=== PATIENT | female | born 1935 | race Caucasian/White ===

== ENCOUNTER 2018-09-06 19:12 | Observation (INO) | payer MEDICARE, BC ==
[~2018-09-06] VITALS: Ht 167.6 cm; Wt 72.8 kg
[~2018-09-06 19:12] MED LIST: ALAVERT10 M1 PO; ASPIRIN EC325 MG PO; CALCIUM + VITA1 EACH PO; DICLOFENAC SOD100 MG PO; DICLOFENAC SODI75 MG PO; FERROUS SULFAT325 MG PO; FLUTICASONE PRO16 GM NAS; HYDROCODON-ACE1 EA10 PO; HYDROXYZINE HCL25 MG PO; LOSARTAN POTAS100 MG PO; MULTI VITAMIN1 EACH PO; NORCO 5-325 TA1 EACH PO; OMEPRAZOLE40 MG PO; PROVENTIL HFA6.7 GM INH; SIMVASTATIN40 MG PO; VITAMIN C500 M1 PO; VITAMIN E400 UNI5 PO; ZOFRAN ODT4 MG SL
[2018-09-06] MEDS ORDERED: NORCO 5-325 TA1 EACH PO (19:35)
[2018-09-06] MEDS ORDERED: NORTRIPTYLINE H10 MG PO (19:36)
[2018-09-06] MEDS ORDERED: LOSARTAN-HCTZ1 EAC2 PO (19:36)
[2018-09-06] MEDS ORDERED: OMEPRAZOLE20 MG PO (19:37)
[2018-09-06] MEDS ORDERED: LASIX20 MG PO (19:38)
--- NOTE | 2018-09-06 22:31 | NUR ---
VITALS DONE AND CHARTED. WEIGHT DONE WELL. FRESH ICE WATER GIVEN. BEDSIDE TABLE AND CALL LIGHT IN REACH.
--- NOTE | 2018-09-06 23:20 | NUR ---
PT ADMITTED TO ROOM 111 FROM ED. PT ALERT AND ORIENTED TO SELF, PLACE AND MONTH/DATE. LIVES AT HOME. SLOW RESPONSE TO QUESTIONS BUT ANSWERS APPROPRIATELY. [place], HEARING AIDS AT BEDSIDE, FRIEND FROM HOME WILL BRING INVENTORY MANAGEMENT SPECIALIST IN AM. NO C/O CP OR SOB, HELPTS WITH TURNING AND HELPED WITH TRANSFERRING FROM GOURNEY TO BED. TOLERATING FLUIDS WELL. BED ALARM ON. INSTRUCTED ON HOSP ROUTINE AND HIGH FALL PRECAUTIONS, STATED UNDERSTANDING. NO C/O PAIN OR REQUESTS AT THIS TIME
--- NOTE | 2018-09-07 02:30 | NUR ---
ASSISTED PT TO THE BEDSIDE COMMODE 1PA PIVOT. SHE IS BACK IN BED WITH ALARM ON. SHE DENIES FURTHER NEEDS CALL LIGHT IS WITHIN REACH.
--- NOTE | 2018-09-07 04:01 | NUR ---
RESTING, NO RESP DISTRESS, BED ALARM ON.
--- NOTE | 2018-09-07 04:53 | NUR ---
PT ALERT TO A&OX3, SLOW RESPONSE WHEN ANSWERING QUESTIONS, ANSWERS APPROPRIATELY. USING CALL LIGHT APPROPRIATELY, IVF INFUSING W/O PROBLEMS. UP TO BSCX1, VOIDED, BACK TO BED, REQUIRED 2PERSON ASSIST TURN AND PIVOT WHEN UP TO BRP, WEAK AND UNSTEADY GAIT PRESENT. SLIHGT DROOP OF MOUTH PRESENT. NO C/O PAIN, TUNRS SELF IN BED, BED ALARM ON FOR FALL PRECAUTIONS. FOLLOWS INSTRUCTIONS WELL. IN BED, ON ROOM AIR
--- NOTE | 2018-09-07 05:39 | NUR ---
AWAKE, NO C/O PAIN, TURNS SELF IN BED, BED ALARM ON, FALL SAFETY MEASURES IN PLACE. ALERT AND ORIENTED, FOLLOWS INSTRUCTIONS WELL, SLOW BUT APPROPRIATE RESPONSE. COOP WITH LAB DRAWS. NO C/O LIGHTHEADNESS AT THIS TIME.
--- NOTE | 2018-09-07 06:04 | NUR ---
ASSISTED PT TO PIVOT TO BSC WITH FWW. SHE IS BACK IN BED AND DENIES NEEDS AT THIS TIME. CALL LIGHT IS WITHIN REACH.
--- NOTE | 2018-09-07 07:47 | NUR ---
GOT PATIENT A WARM BLANKET AND A CUP OF COFFEE. PATIENT SITTING UP ON EDGE OF BED EATING HER BREAKFAST.
--- NOTE | 2018-09-07 08:00 | NUR ---
RECEIVED REPORT AT 0700, FOUND PT IN BED JUST WAKING UP. PT WAS AAO X4 AND HAD NO NEEDS OR CONCERNS AT THAT TIME.
--- NOTE | 2018-09-07 09:29 | NUR ---
SPOKE WITH PATIENT IN ROOM. PATIENT ORIENTED. STATES SHE IS A LITTLE "LIGHTHEADED" WHEN SHE FIRST SAT UP. PATIENT GETTING READY TO WORK WITH PHYSICAL THERAPY. PATIENT STATES SHE LIVES ALONE, IN A HOUSE WITH HER SMALL DOG. HAS A GOOD NEIGHBOR, ANIYA, WHO HELPS HER SOMETIMES. PATIENT STILL DRIVES. PATIENT DOES OWN SHOPPING, OWN MEDICATIONS. SHE STATES SHE HAS A PILL BOX AND SHE FILLS IT HERSELF. SHE STATES SHE HAD A LITTLE DIARRHEA YESTERDAY AND SHE THINKS SHE WAS DEHYDRATED. WE DISCUSSED IMPORTANCE OF FLUIDS, ESPECIALLY WHEN LOOSING FLUIDS THROUGH DIARRHEA. PATIENT AGREES TO VISIT FROM CHW NEXT WEEK TO HELP HER WITH RESOURCES. PATIENT VERY PLEASANT. OBVIOUSLY HAS SOME HEARING LOSS. STATES SHE HAS A WALKER AND CANE AT HOME TO USE. WANTS TO RETURN HOME. IS OK WITH US TALKING WITH HER FAMILY OR HER NEIGHBOR ANIYA.
--- NOTE | 2018-09-07 09:59 | NUR ---
SPOKE WITH NEIGHBOR/FRIEND ANIYA SHEA [phone] WHO IS HERE. SHE HAS BROUGHT PATIENTS MEDICATIONS IN AND IS GOING OVER THEM WITH PHARMACY. SHE STATES PATIENTS NEPHEW IS QUINTIN [employer] [phone] AND HE IS POA. SHE STATES SHE HAS A GRANDSON HERE AND ANOTHER NEPHEW, BUT THEY DON'T VISIT HER OFTEN. SHE STATES SHE ASKED PATIENT IF SHE COULD HELP HER WITH HER MEDICATIONS FROM NOW ON, AND PATIENT IS AGREEABLE. SHE WILL TAKE OVER DOING PILL BOXES AND MAKING SURE SHE IS TAKING THEM. WE DISCUSSED PATIENT WILL NEED TO FOLLOW UP AGAIN SOON WITH HER PCP DR FLYNN AFTER THIS EPISODE. SHE STATES UNDERSTANDING. CHW CONTACT INFORMATION GIVEN TO ANIYA, SHE WILL ALSO CALL MINDI BARNEYW AND BE THERE WHEN SHE COMES TO THE HOME. NO FURTHER QUESTIONS AT THIS TIME. PATIENT WILL RETURN HOME WITH HELP OF NEIGHBOR ANIYA.
--- NOTE | 2018-09-07 10:00 | NUR ---
ALL LOBES CLEAR, PT IS AAO X4, OVERALL STRENGTH BEFORE PHYSICAL THERAPY WAS +4. SHE DID VERY WELL WITH THERAPY. V/S ARE WDL OVERALL. VERT SLIGHT HEART MURMURE NOTED. NO EDEMA NOTED PT DENIES PAIN AND DIZZINESS. NO NEW CONCERNS NOTED SO FAR.
[2018-09-07] MEDS ORDERED: STOOL SOFTENER100 MG PO (10:15)
--- NOTE | 2018-09-07 10:19 | NUR ---
MED REC COMPLETE WITH NEIGHBOR ANIYA AND MEDICATION BOTTLES.
--- NOTE | 2018-09-07 10:26 | NUR ---
CHANGED BED LINENS. PATIENT IS SITTING UP IN CHAIR.
--- NOTE | 2018-09-07 11:32 | EKG ---
[facility] [address] [facility] [place], [place] [address] Signed Normal sinus rhythm Normal ECG No previous ECGs available Confirmed by HO HUDSON DO ([id number]) on 09/07/2018 11:31:58 AM Electronically Signed By: HO HUDSON DO 09/07/18 1132 PATIENT NAME: DHIRAJ MORROW Electrocardiogram DATE OF : 33 PHYSICIAN: HO HUDSON DO REPORT #: [id number] REPORT IS CONFIDENTIAL AND NOT TO BE RELEASED WITHOUT AUTHORIZATION
--- NOTE | 2018-09-10 15:49 | NUR ---
FAXED CLINICALS AND ORDER FOR OUTPATIENT PHYSICAL THERAPY TO [facility]. FAX CONFIRMATION RECEIVED. CALLED AND SPOKE WITH CHW WHO IS SCHEDULED TO SEE PATIENT ON MONDAY AT HOME. SPOKE WITH PATIENTS FRIEND AND NEIGHBOR WHO IS AT THE HOME WITH PATIENT NOW. SHE STATES PATIENT IS FEELING SLOW, BUT BETTER. SHE STATES SHE IS DOING PATIENTS MEDICATIONS. SHE STATES HER NEWPHEW WHO IS POA (QUINTIN) IS COMING MONDAY AND THEY WILL BOTH ACCOMPANY PATIENT TO DR FLYNN APPOINTMENT Monday AND MEET WITH TED OBREGON ON MONDAY AFTERNOON. DISCUSSED THAT OUTPATIENT THERAPY ORDER WAS SENT AND THEY SHOULD BE HEARING FROM THE CLINIC. SHE STATES UNDERSTANDING. SHE STATES PATIENT IS DOING WELL GETTING AROUND THE APARTMENT, THEY HAVE NOT GONE OUT. SHE DENIES ANY CONCERNS AT THIS TIME. SHE HAS OUR CASE MANAGEMENT NUMBER TO CALL IF SHE HAS QUESTIONS.
== END 2018-09-07 10:50 | disposition home or self-care (01) ==
LOC: ED 19:12 → MS 19:13
PROVIDERS: ADMIT Student in an Organized Health Care Education/Training Program
DX: G92 Toxic encephalopathy (principal); N17.9 Acute kidney failure, unspecified; G47.00 Insomnia, unspecified; H91.90 Unspecified hearing loss, unspecified ear; M19.90 Unspecified osteoarthritis, unspecified site; I10 Essential (primary) hypertension; E78.5 Hyperlipidemia, unspecified; J30.2 Other seasonal allergic rhinitis; G89.29 Other chronic pain; Z79.891 Long term (current) use of opiate analgesic; Z79.51 Long term (current) use of inhaled steroids; Z79.899 Other long term (current) drug therapy; Z88.0 Allergy status to penicillin; Z88.2 Allergy status to sulfonamides; Z88.8 Allergy status to other drugs, medicaments and biological substances
CPT/HCPCS: 36415; 51701; 70450; 71045; 80048; 80053; 81001; 83735; 84484; 85025; 93005; 93010; 96361; 96374; 97162; 99285-25; G0378; J2310; J7030; J7120

== ENCOUNTER 2022-12-18 17:13 | Emergency (ER) | payer MEDICARE, BC ==
[~2022-12-18] VITALS: Ht 167.6 cm; Wt 81.7 kg
[~2022-12-18 17:13] MED LIST changes: +LASIX20 MG PO; +LEVOFLOXACIN500 MG PO; +LOSARTAN-HCTZ1 EAC2 PO; +NORTRIPTYLINE H10 MG PO; +OMEPRAZOLE20 MG PO; +PLAVIX75 MG PO; +STOOL SOFTENER100 MG PO
[2022-12-18 18:21] VITALS: BP 150/105
== END 2022-12-18 18:21 | disposition home or self-care (01) ==
LOC: ED 17:13
DX: F10.129 Alcohol abuse with intoxication, unspecified (principal); I10 Essential (primary) hypertension; E78.5 Hyperlipidemia, unspecified; Z88.0 Allergy status to penicillin; Z88.2 Allergy status to sulfonamides; Z88.8 Allergy status to other drugs, medicaments and biological substances; Z79.899 Other long term (current) drug therapy
CPT/HCPCS: 36415; 80053; 83735; 85025; A9270; G0480; J2405; J7121